=== PATIENT | female | born 2000 | race Caucasian/White ===

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

== ENCOUNTER 2020-11-28 01:32 | Emergency (ER) | payer BC ==
[~2020-11-28] VITALS: Ht 160 cm; Wt 54.5 kg
[2020-11-28 01:37] VITALS: TEMP 97.8
[2020-11-28 02:23] VITALS: BP 128/70; PULSE 76
== END 2020-11-28 02:17 | disposition home or self-care (01) ==
LOC: COL.ER 01:32
DX: S09.22XA Traumatic rupture of left ear drum, initial encounter (principal); Z85.72 Personal history of non-Hodgkin lymphomas; X58.XXXA Exposure to other specified factors, initial encounter